=== PATIENT | male | born 1970 | race Caucasian/White ===

== ENCOUNTER → 2017-08-11 07:39 | Outpatient (CLI) | payer MEDICARE, SELFPAY ==
--- NOTE | 2017-08-11 07:41 | US_ITS ---
US abdomen limited: HISTORY: ITS.REASON: RUQ PAIN, NAUSEA ORDERING PHYSICIAN: Edelmira Marcelo PATIENT AGE: 47 years COMPARISON: None FINDINGS: PANCREAS: Pancreas is partially secured by overlying bowel gas. The body of the pancreas has an unremarkable appearance. LIVER: No focal liver lesions demonstrated. Homogeneous echogenicity. No intrahepatic biliary ductal dilatation evident RIGHT KIDNEY: Unremarkable. Normal size and echogenicity. No hydronephrosis GALLBLADDER: No gallstones, gallbladder wall thickening, pericholecystic fluid, or biliary dilatation. There is a small amount sludge within the gallbladder. Common bile duct is normal at 4 mm. IMPRESSION: 1. Small amount of sludge within the gallbladder. 2. Otherwise negative right upper quadrant ultrasound
== END ==
PROVIDERS: PCP Nurse Practitioner; Visit Provider Nurse Practitioner Family
DX: R10.11 Right upper quadrant pain (principal); R11.2 Nausea with vomiting, unspecified
CPT/HCPCS: 76705

== ENCOUNTER → 2017-08-18 09:54 | Outpatient (CLI) | payer MEDICARE, SELFPAY ==
--- NOTE | 2017-08-18 10:02 | NM_ITS ---
NM hepatobiliary wo pharm COMPARISON: Ultrasound gallbladder 08/11/2017 HISTORY: Right upper quadrant pain, sludge seen in gallbladder TECHNIQUE: 8.09 mCi of technetium 9M Choletec was injected. FINDINGS: The hepatic phase appears normal with homogeneous activity to the liver. There is activity in the common bile duct and proximal small bowel at 10 minutes. Later images show progressive washout of activity from liver with increasing activity in the proximal small bowel. Activity remains in the common bile duct and descending duodenum. Gallbladder activity is deftly seen on scans after one hour at which time a lateral view is obtained and then was followed by an AP 1 hour and 20 minute image. There is a small area of increased activity which appears be possibility junction of the cystic duct with the common bile duct but a normal appearing gallbladder is never visualized. CCK was not given. IMPRESSION: No definite gallbladder activity identified suggesting cystic duct obstruction
--- NOTE | 2017-08-18 10:57 | HMH.ITSHM ---
MUSCLE RELAXER STOMACH MED
== END ==
PROVIDERS: PCP Nurse Practitioner Family; Visit Provider Nurse Practitioner Family
DX: R10.11 Right upper quadrant pain (principal); K82.8 Other specified diseases of gallbladder
CPT/HCPCS: 78226; A9537; J2805

== ENCOUNTER → 2017-08-30 07:58 | Outpatient (CLI) | payer MEDICARE, SELFPAY ==
[2017-08-30 08:50] LABS: Basophils % 0.3 % (0.1-2.0); Eosinophils # 0.3 K/mm3 (0.0-0.4); Eosinophils % 3.9 % (0.1-12.0); Hematocrit 48.7 % (42.0-52.0); Hemoglobin 16.1 g/dL (14.1-18.0); Lymphocytes % 45.2 K/mm3 (10-50); Mean Corpuscular Hemoglobin 33.4 pg (27.0-31.2); Mean Corpuscular Volume 101.2 fl (80-94); Mean Platelet Volume 8.3 fl (7.4-10.4); Monocytes # 0.6 K/mm3 (0.1-1.0); Monocytes % 8.4 % (1.7-9.3); Neutrophils # 2.8 K/mm3 (1.8-7.8); Neutrophils % 42.2 % (37.0-80.0); Platelet Count 239 K/mm3 (142-424); Red Blood Count 4.82 M/mm3 (4.60-6.20); White Blood Count 6.6 K/mm3 (4.8-10.8)
[2017-08-30 11:34] LABS: Alanine Aminotransferase 128 U/L (12-78); Albumin Level 3.6 gm/dL (3.4-5.0); Albumin/Globulin Ratio 0.9 (1.1-1.8); Alkaline Phosphatase 85 U/L (46-116); Anion Gap 12.1 mEq/L (5-15); Aspartate Amino Transferase 79 U/L (15-37); Bilirubin,Total 0.4 mg/dL (0.2-1.0); Blood Urea Nitrogen 10 mg/dL (7-18); Carbon Dioxide 28 mmol/L (21.0-32.0); Chloride 106 mmol/L (98-107); Creatinine,Serum 0.83 mg/dL (0.70-1.30); Estimated Glomerular Filt Rate 100 ml/min (>60); GFR (African American) 121 ML/MIN (>60); Globulin 3.9 gm/dl (1.3-3.2); Glucose 90 mg/dL (74-106); Potassium 5.1 mmoL/L (3.5-5.1); Sodium 141 mmol/L (136-145); Total Protein,Serum 7.5 gm/dL (6.4-8.2)
== END ==
PROVIDERS: Visit Provider Surgery
DX: Z01.818 Encounter for other preprocedural examination (principal); K80.01 Calculus of gallbladder with acute cholecystitis with obstruction
CPT/HCPCS: 36415; 80053; 85025; 93005

== ENCOUNTER → 2018-10-09 13:01 | Outpatient (CLI) | payer MEDICARE, SELFPAY ==
[2018-10-09 13:05] LABS: Microscopic, Urine URINE MICROSCOPIC (MICROSCOPIC)
[2018-10-09 14:09] LABS: Appearance,Urine CLEAR (Clear); Bilirubin,Urine Negative (Negative); Blood, Urine Negative (Negative); Color,Urine YELLOW (Yellow); Glucose,Urine (UA) Negative (Negative); Ketones,Urine Negative (Negative); Leukocyte Esterase,Urine Negative (Negative); Nitrate,Urine Negative (Negative); Protein,Urine Negative (Negative); Specific Gravity, Urine <= 1.005 (1.005-1.030); Urobilinogen,Urine 0.2 EU/dl (0.2)
[2018-10-09 14:58] LABS: Basophils % 0.2 % (0.1-2.0); Eosinophils # 0.2 K/mm3 (0.0-0.4); Eosinophils % 3.4 % (0.1-12.0); Hematocrit 48.6 % (42.0-52.0); Hemoglobin 16.7 g/dL (14.1-18.0); Lymphocytes # 2.4 K/mm3 (0.7-4.5); Lymphocytes % 33.8 % (10-50); Mean Corpuscular HGB Conc 34.3 g/dL (31.8-35.4); Mean Corpuscular Hemoglobin 34.7 pg (27.0-31.2); Mean Corpuscular Volume 101.2 fl (80-94); Monocytes # 0.4 K/mm3 (0.1-1.0); Monocytes % 5.8 % (1.7-9.3); Neutrophils # 4.1 K/mm3 (1.8-7.8); Neutrophils % 56.9 % (37.0-80.0); Platelet Count 222 K/mm3 (142-424); Red Cell Distribution Width 13.2 % (11.5-17.5); White Blood Count 7.2 K/mm3 (4.8-10.8)
[2018-10-09 15:03] LABS: WBC,Urine Occasional #/hpf (0-3)
[2018-10-09 15:04] LABS: Bacteria,Urine Trace /lpf
[2018-10-09 15:07] LABS: Anion Gap 17.2 mEq/L (5-15); Blood Urea Nitrogen 10 mg/dL (7-18); Calcium 8.9 mg/dL (8.5-10.1); Carbon Dioxide 25 mmol/L (21.0-32.0); Chloride 102 mmol/L (98-107); Creatinine,Serum 0.94 mg/dL (0.70-1.30); Estimated Glomerular Filt Rate 86 ml/min (>60); GFR (African American) 105 ML/MIN (>60); Glucose 89 mg/dL (74-106); Potassium 4.2 mmoL/L (3.5-5.1); Sodium 140 mmol/L (136-145)
== END ==
PROVIDERS: Visit Provider Surgery
DX: K40.90 Unilateral inguinal hernia, without obstruction or gangrene, not specified as recurrent (principal); R10.9 Unspecified abdominal pain
CPT/HCPCS: 36415; 80048; 81001; 85025

== ENCOUNTER 2018-10-12 06:09 | Day surgery (SDC) | payer MEDICARE, SELFPAY ==
[2018-10-10 14:57] VITALS: BMI 34.4
[2018-10-12] VITALS (14 sets, daily range): BP systolic 142–161; BP diastolic 79–95; PULSE 62–81; RESP 12–18; TEMP 6.1–43; O2SAT 91–97
--- NOTE | 2018-10-12 07:00 | P.PN_ITS ---
[facility] Anesthesia Checklist - Structural Data Admitted From: Home Planned Operative Procedure/s: l inguinal hernia Consent for Planned Operative Procedure(s) Verified: Yes - Airway Assessment C-Spine Mobility Assessed: Yes TMJ Mobility Assessed: Yes Dentition: Good Dentition - Neurological Assessment Level of Consciousness: Awake, Alert, Appropriate - Anesthesia Plan Anesthesia Risk discussed: Yes Anesthesia Plan: Verified ASA Class: II Anesthesia Type: General [facility] History I have reviewed the patient's past medical history: Yes Medical History: Reports:: Gall Bladder Disease Denies:: Cancer, Diabetes Mellitus Type 1, Diabetes Mellitus Type 2, Internal Pacemaker, MRSA, Seizures *Have you ever received a pneumonia vaccine?: No *Have you received a flu vaccine this season?: No Other Medical History: Denies: Blood Transfusion Reaction Laterality Cases: Right: Arthroscopy Knee Other Surgeries: Yes: Cholecystectomy, Hernia Repair, Other. No: Pacemaker Amputation: No Fractures: Yes (ankles) - *Social History Educational Level: Completed High School Smoking Status: Never smoker Alcohol Intake: never Alcohol Intake Frequency:: holidays/special occasions only Substance Use Type: denies use *Occupational Status:: disabled Housing: house Household Members: family *Travel in the last 8 weeks: None - Psychiatric History Expresses thoughts of harming self/others: None Suicide Plan Description: No Plan Family Hx:: Cancer
--- NOTE | 2018-10-12 08:38 | HMH.OPNOTE ---
Date of procedure: 10/12/18 Pre-op Diagnosis:: Left inguinal hernia Post-op Diagnosis:: Same Procedure performed:: Open left inguinal hernia repair Surgeon:: Cristobal Yañez MD It Technical Support Specialist(s):: Manuela GASOLINE TESTER:: Edwin Box Anesthesia: GETA Estimated blood loss (mL): 15 Operative findings:: Complex left inguinal hernia with chronic inflammatory response around weakened floor and indirect defect Operative note:: After informed consent was obtained the patient was taken to the operating room and placed in the supine position. General anesthesia was induced and his abdomen/groin/scrotum were prepped and draped in a sterile fashion. After infiltration with local anesthetic an oblique incision was made along the left groin. The deep subcutaneous tissue was dissected with electrocautery through Luh's fascia to the level of the external aponeurosis. The external aponeurosis was sharply opened to the level of the external ring. The contents of the canal were carefully elevated. The patient had excess adiposity and dissection was very difficult. Severe chronic inflammatory changes with scarring in and around the entire canal contents noted. A weakened floor representing a direct deflect was noted. A complex indirect defect was also noted; however, the inflammatory response/chronic scarring made complete dissection very difficult. Cord lipomas were freed as the vas and vessels were protected. An extra-large PerFix plug was placed in the indirect defect and secured with interrupted Ethibond. The PerFix overlay mesh was then secured to the shelving edge inferiorly and fascial margin superiorly. No sign of injury or bleeding noted. The external aponeurosis was reapproximated with running Vicryl suture. Luh's fascia was closed in the same manner. Skin was then reapproximated with running 4-0 Monocryl in a subcuticular fashion. Dressings were applied and the patient was transferred to recovery in stable condition after extubation. Condition: stable Disposition: PACU Specimens:: None Complications:: No immediate
--- NOTE | 2018-10-12 08:45 | SUR.OPER ---
0847 rahman catheter removed
--- NOTE | 2018-10-12 08:51 | HMH.ANESI ---
[facility] Anesthesia Record Part I Intake, IV Amount: 1,900 Estimated blood loss (mL): 0 Urine output (mL): 250 Blood Pressure: 159/95 SaO2: 96 Pulse Rate: 81 Respiratory Rate: 12 Temperature: 98.1 F Patient is:: Awake, Stable Stable to PACU at:: 08:50
--- NOTE | 2018-10-12 08:52 | P.PN_ITS ---
[facility] Anesthesia Record Part II Discharge Time: 09:20 Destination: [facility] PACU nurse assessment reviewed?: Yes Patient Condition:: Good Anesthesia Complications:: None Swallowing reflex intact?: Yes Cyanosis?: No
--- NOTE | 2018-10-12 08:52 | HMH.ANESII ---
[facility] Anesthesia Record Part II Discharge Time: 09:20 Destination: [facility] PACU nurse assessment reviewed?: Yes Patient Condition:: Good Anesthesia Complications:: None Swallowing reflex intact?: Yes Cyanosis?: No
== END 2018-10-12 10:20 | disposition home or self-care (01) ==
LOC: OR 06:11
PROVIDERS: PCP Nurse Practitioner Family; Visit Provider Surgery
DX: K40.90 Unilateral inguinal hernia, without obstruction or gangrene, not specified as recurrent (principal)
CPT/HCPCS: 49505; 96374; J2405

== ENCOUNTER → 2019-09-04 07:03 | Outpatient (CLI) | payer MEDICARE, SELFPAY ==
--- NOTE | 2019-09-04 07:08 | XR_ITS ---
PROCEDURE: XR CERVICAL SPINE 5V CLINICAL INDICATION: CERVICALGIA Neck pain radiating down right arm with tingling on right COMPARISON: No exams were available for comparison FINDINGS: There is degenerative disc disease at C5-C6 with endplate osteophytes. There is mild facet and uncovertebral hypertrophy with mild foraminal narrowing on the right at C3-C4 C4-C5 C5-C6 and C6-C7 and narrowing on the left at C3-C4 and C5-C6. No cervical ribs. No destructive process. IMPRESSION: Cervical spondylosis with degenerative disc disease and foraminal narrowing from uncovertebral hypertrophy Dictated by: Declan Sandoval MD 09/04/2019 07:51 Electronically signed by Declan Sandoval MD in [place] 09/04/2019 07:51
== END ==
PROVIDERS: PCP Nurse Practitioner Family; Visit Provider Nurse Practitioner Family
DX: M54.2 Cervicalgia (principal)
CPT/HCPCS: 72050

== ENCOUNTER → 2019-09-10 12:46 | Outpatient (CLI) | payer MEDICARE, SELFPAY ==
--- NOTE | 2019-09-10 12:51 | MR_ITS ---
PROCEDURE: MR CERVICAL SPINE WO CON CLINICAL INDICATION: CERVICAL SPONDYLOSIS Neck pain, bilateral arm pain numbness and tingling, severe right arm pain COMPARISON: XR CERVICAL SPINE 5V from 09/04/2019 TECHNIQUE: Standard multiplanar multiecho sequences are performed without contrast. 3-D MIP and myelographic images are also rendered and reviewed FINDINGS: There is straightening of the cervical lordosis. Craniocervical junction has an unremarkable appearance. C2-C3: Unremarkable. C3-C4: Minimal left foraminal narrowing from facet and uncovertebral hypertrophy. C4-C5: Unremarkable. C5-C6: There is degenerative disc disease with a broad-based left paracentral for 2 ending disc-disc osteophyte complex. This is causing impingement and flattening upon the anterior left aspect of the cervical cord with canal measuring 10 mm at this level. There is bilateral foraminal narrowing and moderate left lateral recess narrowing. C6-C7: Degenerative disc disease with a broad-based right paracentral and foraminal disc osteophyte complex causing flattening upon the anterior and right lateral aspect of the cord with severe right lateral recess narrowing and bilateral foraminal narrowing. C7-T1: Unremarkable IMPRESSION: 1. Straightening of cervical lordosis with level multilevel cervical spondylosis. Please see above for detailed description at each 2. C5-C6: There is degenerative disc disease with a broad-based left paracentral for 2 ending disc-disc osteophyte complex. This is causing impingement and flattening upon the anterior left aspect of the cervical cord with canal measuring 10 mm at this level. There is bilateral foraminal narrowing and moderate left lateral recess narrowing. 3. C6-C7: Degenerative disc disease with a broad-based right paracentral and foraminal disc osteophyte complex causing flattening upon the anterior and right lateral aspect of the cord with severe right lateral recess narrowing and bilateral foraminal narrowing. Dictated by: Declan Sandoval MD 09/10/2019 15:07 Electronically signed by Declan Sandoval MD in [place] 09/10/2019 15:07
== END ==
PROVIDERS: PCP Nurse Practitioner Family; Visit Provider Nurse Practitioner Family
DX: M47.22 Other spondylosis with radiculopathy, cervical region (principal)
CPT/HCPCS: 72141; 76376

== ENCOUNTER 2019-09-10 14:23 | Emergency (ER) | payer MEDICARE, SELFPAY ==
[2019-09-10 14:25] VITALS: BP 212/109; PULSE 98; RESP 20; TEMP 36.6; O2SAT 97; BMI 35.2
--- NOTE | 2019-09-10 16:06 | HMH.EDGENADL ---
ED Disposition Clinical Impression: Cervicalgia of hgxyigsa-[id number]-[id number] region Disposition: Home, Self-Care Condition on Discharge: Good Instructions: DI for Chronic Pain -- Adult, DI for Acute Pain -- Adult Prescriptions: Tizanidine HCl [Zanaflex 4mg tablet] 4 mg PO TID 12 Days #45 tab Transmission Status: Pending to [facility] Referrals: Edelmira Marcelo APRN [Primary Care Provider] - - Critical Care Critical Care Time: No Attestation: On 09/10/19, the high probability of a clinically significant, sudden or life threatening deterioration of the following system(s) required my full and direct attention, intervention and personal management. The time I documented below is in addition to time spent performing reported procedures but includes the following listed in this critical care notation. Medical Decision Making - Medical Records Medical records reviewed: Yes: I reviewed the patient's medical records. - Julio César Inquiry Pt receiving controlled substance: No Vital Signs: 09/10/19 14:25 Temperature 97.8 F Temperature Source Oral Pulse Rate [Radial] 98 H Respiratory Rate 20 Blood Pressure [Right Arm] 212/109 H Blood Pressure Mean [Right Arm] 143 Blood Pressure Source [Right Arm] Automatic Cuff Blood Pressure Position [Right Arm] Sitting 02 Sat by Pulse Oximetry 97 Oxygen Delivery Method Room Air - Lab Data Lab results reviewed: Yes: I reviewed the patient's lab results. Orders (Tests/Meds): ED MEDICATIONS Discontinued Medications Generic Name Dose Route Start Last Admin Trade Name Kvngq PRN Reason Stop Dose Admin Hydromorphone HCl 1 mg 09/10/19 15:05 09/10/19 15:06 Dilaudid 2mg/Ml Syringe IM 09/10/19 15:06 1 mg ONCE ONE Administration Ketorolac Tromethamine 60 mg 09/10/19 15:05 09/10/19 15:06 Toradol 60mg/2ml Vial IM 09/10/19 15:06 60 mg ONCE ONE Administration Triamcinolone Acetonide 80 mg 09/10/19 15:05 09/10/19 15:06 Kenalog 40mg/Ml Vial IM 09/10/19 15:06 80 mg ONCE ONE Administration General Adult HPI - General Chief complaint: PAIN Stated complaint: neck pain Time Seen by Provider: 09/10/19 16:06 Mode of Arrival: Ambulatory Limitations: No Limitations Description of Symptoms (Recalled from ER Triage Doc. by RN): Complaint of neck and back pain x 3 months. MRI this morning - History of Present Illness HPI narrative: 49-year-old male presents the ED with severe neck pain. Apparently he was get an MRI done of his cervical spine and after the MRI he was just in a lot of pain and presented here to the ED. Patient has had chronic neck pain for quite some time is presently being managed by his primary care provider. He states that the pain is a very sharp sensation going down both arms describes the pain as tearing at times. He rates his pain currently at 9 out of 10. He says there are no alleviating factors exacerbating factors include movement. Patient has good muscle strength in his upper extremities does not complain of any weakness. Patient also denies any recent fever shakes or chills nausea vomiting diarrhea and cough or shortness of breath. - Related Data Home Medications Medication Instructions Recorded Confirmed ibuprofen 200 mg capsule 200 mg PO Q6H 09/04/18 10/31/18 Tizanidine HCl [Zanaflex] 4 mg PO DAILY 10/10/18 10/31/18 Previous Rx's Medication Instructions Recorded Tizanidine HCl [Zanaflex 4mg 4 mg PO TID 12 Days #45 tab 09/10/19 tablet] Allergies Allergy/AdvReac Type Severity Reaction Status Date / Time No Known Allergies Allergy Verified 10/31/18 13:31 [facility] History - Hepatitis A Screen Drug use history?: No High risk sexual behaviors?: No History of sexually transmitted infection?: No Currently employed?: No Childcare worker?: No Do you have indoor plumbing?: Yes Do you have electricity?: Yes Attestation statement:: This patient has been screened for Hepatitis A ri
[2019-09-10 16:47] VITALS: BP 122/85; PULSE 85; RESP 20; TEMP 36.8; O2SAT 98
== END 2019-09-10 16:48 | disposition home or self-care (01) ==
PROVIDERS: Emergency Provider Family Medicine; PCP Nurse Practitioner Family
DX: M54.2 Cervicalgia (principal)
CPT/HCPCS: 20552; 72141; 76376; 96372; 99281; 99282

== ENCOUNTER → 2019-10-01 09:33 | Outpatient (POV) | payer MEDICARE, SELFPAY ==
[2019-10-01 09:58] VITALS: BP 170/78; PULSE 100; RESP 18; TEMP 36.8; O2SAT 98; BMI 29.8
--- NOTE | 2019-10-01 15:30 | HMH.PMCON ---
Assessment and Plan (1) Degenerative disc disease, lumbar Current visit: Yes Status: Chronic Category: Medical Code(s): M51.36 - Other intervertebral disc degeneration, lumbar region (2) Degenerative disc disease, cervical Current visit: Yes Status: Chronic Category: Medical Code(s): M50.30 - Other cervical disc degeneration, unspecified cervical region - Assessment and plan all Dx Assessment and Plan for all problems:: We will set up the patient for C5-C6 cervical epidural steroid injection. We will also start him on Lyrica 75 mg 1 p.o. twice daily and tramadol 50 mg 1 p.o. 3 times daily. I will follow-up with him after his injection reassess his symptoms at that time. He has been instructed to call the office if he has any issues prior to his next appointment. Dr. Urias has reviewed this note and agrees with this plan of care. This note was dictated using voice recognition software and may contain errors or omissions HPI - Data of Consult Consult date: 10/01/19 Requesting Physician: Edith Feliciano APRN Primary Care Provider: Edelmira Marcelo APRN - Consult Narrative Reason for consult: Back pain, leg pain neck pain History of present illness: Mr. Kendrick is a 49 year old male who presents today for consultation in regards to his neck pain and back pain. 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 He used to go to see Dr. ramires where he received epidural injections with quite some benefit. Patient stated that he has been on Lyrica in the past with good relief. Patient has also been on low-dose narcotics with good relief he rates his pain a 7 out of 10. He is tried and failed physical therapy. Most of his pain is in his neck some neck and bilateral arms. He has an appointment with the surgeon. All activity increases his pain will heat ice physical therapy and pain cream decreases pain. He gets moderate relief with injections. He gets significant relief with physical therapy. Patient does have significant pathology in his cervical MRI. CC: Edith Feliciano APRN [facility] History I have reviewed the patient's past medical history: Yes Medical History: Reports:: Gall Bladder Disease Denies:: Cancer, Diabetes Mellitus Type 1, Diabetes Mellitus Type 2, Internal Pacemaker, MRSA, Seizures *Have you ever received a pneumonia vaccine?: Yes *Have you received a flu vaccine this season?: Yes Other Medical History: Reports: Arthritis. Denies: Blood Transfusion Reaction Laterality Cases: Right: Arthroscopy Knee Other Surgeries: Yes: Cholecystectomy, Hernia Repair, Other. No: Pacemaker Amputation: No Fractures: Yes (ankles) - *Social History Smoking Status: Never smoker Alcohol Intake: never Alcohol Intake Frequency:: holidays/special occasions only Substance Use Type: denies use *Occupational Status:: other Housing: house Household Members: other *Travel in the last 8 weeks: None Family Hx:: Unable to obtain Review of Systems - Review of Systems ROS General: no recent weight change, no fever, no sleep disturbances Respiratory: no cough, no shortness of air, no recurring pulmonary infections Cardiovascular/Peripheral Vascular: No chest pain, No palpitations, no edema, no shortness of breath. Gastrointestinal: no new onset incontinence, normal bowel movements reported Genitourinary: no new onset incontinence Musculoskeletal: Neck pain, leg pain, back pain Psychiatric: normal mood/ affect Neurological: [denies new onset weakness in extremities], [denies new onset balance issues] Meds Home Medications Medication Instructions Recorded Confirmed Type ibuprofen 200 mg capsule 200 mg PO Q6H 09/04/18 10/31/18 History Tizanidine HCl [Zanaflex] 4 mg PO DAILY 10/10/18 10/31/18 History Tizanidine HCl [Zanaflex 4mg 4 mg PO TID 12 Days #45 tab 09/10/19 Rx tablet] Allergies Allergy/AdvReac Type Severity Reaction Status Date / Time No Known Allergies Allergy
== END ==
PROVIDERS: PCP Nurse Practitioner Family; Visit Provider Clinical Nurse Specialist Family Health
DX: M51.36 Other intervertebral disc degeneration, lumbar region (principal); M50.30 Other cervical disc degeneration, unspecified cervical region
CPT/HCPCS: 99202

== ENCOUNTER 2019-10-04 14:46 | Day surgery (SDC) | payer MEDICARE, SELFPAY ==
[2019-10-04 14:53] VITALS: BP 149/93; PULSE 95; RESP 18; TEMP 36.9; O2SAT 98; BMI 35.9
--- NOTE | 2019-10-04 15:22 | HMH.PMPROC ---
- Procedure Date: 10/04/19 Time: 15:22 Anesthesiologist:: Jose Elias Urias MD Complications:: None Pre-procedure Diagnosis:: Degenerative disc disease of the cervical spine with cervical radiculopathy symptoms Post-procedure Diagnosis:: Same Indications for Procedure:: This patient is a pleasant 49-year-old white male who we are treating for neck pain with cervical radiculopathy symptoms. He has previously had injections by Dr. Pickett which is helped tremendously. Most of his pain is in the neck rating down to his shoulders and arms. We will do a cervical epidural steroid injection today to see if this will help. Procedure Details:: Cervical epidural steroid injection under fluoroscopy Informed consent was obtained and the risks and benefits of the procedure was explained to the patient. The patient was taken to the procedure room placed prone on the procedure table. The neck was prepped using ChloraPrep. The skin and subcutaneous tissues were anesthetized using lidocaine. I placed a 18-gauge epidural needle into the C5-C6 interspace and advanced using [id number] to air and fluoroscopic guidance. After confirmation of needle placement in the epidural space with dye, I injected 3 mL's lidocaine 1.5% and Depo-Medrol 80 mg. The patient tolerated the procedure well with no complications. Plan and Disposition:: We will follow-up with him in 2 weeks. Will reevaluate symptoms at that time.
[2019-10-04 15:25] VITALS: BP 155/88; BP 159/85; PULSE 85; RESP 18; O2SAT 98; O2SAT 99
[2019-10-04 15:36] VITALS: BP 165/99; PULSE 89; RESP 18; O2SAT 98
== END 2019-10-04 15:37 | disposition home or self-care (01) ==
LOC: SC.PAINP 14:48
PROVIDERS: PCP Nurse Practitioner Family; Visit Provider Anesthesiology
DX: M50.10 Cervical disc disorder with radiculopathy, unspecified cervical region (principal); I10 Essential (primary) hypertension; Z87.39 Personal history of other diseases of the musculoskeletal system and connective tissue; Z87.19 Personal history of other diseases of the digestive system
CPT/HCPCS: 62321; J1040; Q9966

== ENCOUNTER → 2019-10-21 14:49 | Outpatient (POV) | payer MEDICARE, SELFPAY ==
[2019-10-21 15:20] VITALS: BP 160/95; PULSE 72; RESP 18; TEMP 36.8; O2SAT 98; BMI 35.9
--- NOTE | 2019-10-21 15:20 | HMH.PAINSOAP ---
[facility] Pain Management SOAP Note Subjective:: Patient is a pleasant 49-year-old white male who presents today for follow-up after cervical epidural steroid injection. He states it helped significantly and decrease his symptomology by 80%. Patient states he had a [address] last night from [facility] he found that he had muscle spasms and trigger points pop up in his cervical paraspinous and trapezius muscles. He asked for some trigger point injections. I do believe that would benefit him. He states the Lyrica 75 mg 1 p.o. twice daily and tramadol 50 mg 3 times daily is beneficial. [facility] #[id number] reviewed and appropriate. ROS General: no recent weight change, no fever, no sleep disturbances Respiratory: no cough, no shortness of air, no recurring pulmonary infections Cardiovascular/Peripheral Vascular: No chest pain, No palpitations, no edema, no shortness of breath. Gastrointestinal: no new onset incontinence, normal bowel movements reported Genitourinary: no new onset incontinence Musculoskeletal: Neck pain, myofascial pain Psychiatric: normal mood/ affect Neurological: [denies new onset weakness in extremities], [denies new onset balance issues] Objective:: Physical Exam General: Alert and oriented x3, no acute distress, pleasant and cooperative, [on room air] Lungs: Resps E/U, Symmetrical chest expansion, Eyes: PERRL Musculoskeletal: Flexion and extension of cervical spine somewhat guarded secondary to pain, deep tendon reflexes normal, strength in upper and lower extremities [5/5], normal gait noted Neurological: speech clear, obstetrician/gynecologist equal, no gross sensory deficits Assessment:: Degenerative disc disease cervical spine with cervical radiculopathy and myofascial pain syndrome Plan:: We will set the patient up for trigger point injections of the cervical paraspinous and bilateral trapezius muscles. We will continue his Lyrica 75 mg 1 p.o. twice daily and tramadol 50 mg 1 p.o. 3 times daily. I will follow-up with him after his injections reassess his symptoms at that time he has been instructed to call the office if he has any issues prior to his next appointment. Dr. Urias has reviewed this note and agrees with this plan of care. This note was dictated using voice recognition software and may contain errors or omissions [facility] History I have reviewed the patient's past medical history: Yes Medical History: Reports:: Gall Bladder Disease Denies:: Cancer, Diabetes Mellitus Type 1, Diabetes Mellitus Type 2, Internal Pacemaker, MRSA, Seizures *Have you ever received a pneumonia vaccine?: No *Have you received a flu vaccine this season?: No Other Medical History: Reports: Arthritis. Denies: Blood Transfusion Reaction Laterality Cases: Right: Arthroscopy Knee Other Surgeries: Yes: Cholecystectomy, Hernia Repair, Other. No: Pacemaker Amputation: No Fractures: Yes (ankles) - *Social History Smoking Status: Never smoker Alcohol Intake: never Alcohol Intake Frequency:: holidays/special occasions only Substance Use Type: denies use *Occupational Status:: employed Housing: house Household Members: other *Travel in the last 8 weeks: None Family Hx:: Unable to obtain
== END ==
PROVIDERS: PCP Nurse Practitioner Family; Visit Provider Clinical Nurse Specialist Family Health
DX: M50.10 Cervical disc disorder with radiculopathy, unspecified cervical region (principal); M79.18 Myalgia, other site
CPT/HCPCS: 99212

== ENCOUNTER 2019-11-05 13:14 | Day surgery (SDC) | payer MEDICARE, SELFPAY ==
[2019-11-05 13:35] VITALS: BP 176/103; PULSE 78; RESP 18; TEMP 36.5; O2SAT 97; BMI 35.9
[2019-11-05 13:53] VITALS: BP 132/85; PULSE 85
[2019-11-05 13:54] VITALS: BP 140/78; PULSE 82; RESP 18; O2SAT 98
--- NOTE | 2019-11-05 13:56 | P.PCN_ITS ---
- Procedure Date: 11/05/19 Time: 13:56 Anesthesiologist:: Edith Feliciano APRN Complications:: None Pre-procedure Diagnosis:: Myofascial pain syndrome Post-procedure Diagnosis:: Same Indications for Procedure:: Patient is a pleasant 49-year-old white male who presents today for trigger point injections of the cervical paraspinous muscles. He has had a cervical epidural which significantly helped his symptomology now his main complaint is myofascial pain symptoms. He is currently on Lyrica and tramadol 50 mg 1 p.o. 3 times daily. He is doing well with this. We will move forward with his trigger point injections. Physical Exam General: Alert and oriented x3, no acute distress, pleasant and cooperative, [on room air] Lungs: Resps E/U, Symmetrical chest expansion, Eyes: PERRL Musculoskeletal: Flexion and extension of cervical spine somewhat guarded secondary to pain, deep tendon reflexes normal, strength in upper and lower extremities [5/5],, palpable trigger points bilateral cervical paraspinous area Neurological: speech clear, asphalt blender equal, no gross sensory deficits Procedure Details:: Procedure: Informed consent was obtained and the risk and benefits of the procedure were explained to the patient. Patient was taken to the procedure room. Bilateral cervical paraspinous muscles was prepped using ChloraPrep as a cleansing solution. Trigger points were palpated and marked. Each of these trigger points were injected with 3 mL's of bupivacaine 0.25 and Depo-Medrol 10 mg. A total of 80 milligrams of Depo-Medrol was used for 8. Bandages were placed over the injection sites. Patient tolerated the procedure well with no complications. Plan and Disposition:: Follow-up with the patient in 2 to 3 weeks reassess his symptoms at that time he has been instructed to call the office if he has any issues prior to his next appointment. Dr. Urias has reviewed this note and agrees with this plan of care. This note was dictated using voice recognition software and may contain errors or omissions
[2019-11-05 14:05] VITALS: BP 168/105; PULSE 76; RESP 18; O2SAT 98
== END 2019-11-05 14:07 | disposition home or self-care (01) ==
LOC: SC.PAINP 13:15
PROVIDERS: PCP Nurse Practitioner Family; Visit Provider Clinical Nurse Specialist Family Health
DX: M79.18 Myalgia, other site (principal); I10 Essential (primary) hypertension; M50.30 Other cervical disc degeneration, unspecified cervical region; M51.36 Other intervertebral disc degeneration, lumbar region; Z87.39 Personal history of other diseases of the musculoskeletal system and connective tissue; Z79.82 Long term (current) use of aspirin; Z79.899 Other long term (current) drug therapy
CPT/HCPCS: 20552; J1030

== ENCOUNTER → 2019-11-28 09:31 | Outpatient (POV) | payer MEDICARE, SELFPAY ==
[2019-11-28 10:01] VITALS: BP 174/98; PULSE 74; RESP 18; O2SAT 98; BMI 32.3
--- NOTE | 2019-11-28 12:45 | HMH.PAINSOAP ---
[facility] Pain Management SOAP Note Subjective:: Patient is a 49-year-old white male who presents today for follow-up. He has been treated for neck pain as well as cervical radiculopathy symptoms myofascial pain. Patient has undergone cervical epidural steroid injection which has given him relief, however, he continued to have some myofascial pain. He did undergo trigger point injections. Patient says he feels as though he got more relief with the trigger point injections than he did with the epidural. He is currently on Lyrica and tramadol. Patient says that he wants to change his medication to [place]. He says he was on those in the past and he thinks this would give him more relief. We did have a conversation that we would not be changing his medications, however, patient says that he is not interested in further injective therapy. He also says he is not interested in any type of implanted devices. He says that he does have an appointment scheduled with neurosurgery department to discuss possible options. He also says that he is going to discuss possible oral medication management with his primary care provider or possible clinics in [place]. He says he did see Dr Patino for medication management in the past. Patient says he is considering returning there. He rates his pain a 6 out of 10. Review of Systems General: No recent weight changes, no fever, no sleep disturbances Respiratory: No cough, no shortness of air, no recurring pulmonary infections Cardiovascular/peripheral vascular: No chest pain, no palpitations, no edema, no shortness of breath Gastrointestinal: No new onset incontinence, normal bowel movements reported Genitourinary: No new onset incontinence Musculoskeletal: Neck pain, right arm pain with numbness and tingling Psychiatric: Normal mood/affect Neurological: [Denies weakness in extremities], [denies balance issues] Objective:: Physical exam General: Alert and oriented x3, no acute distress, pleasant and cooperative, [on room air] Lungs: Respirations even and unlabored, symmetrical chest expansion Eyes: PERRL Musculoskeletal: Flexion and extension of cervical spine somewhat guarded secondary to pain, deep tendon reflexes normal, strength in upper and lower extremities [5/5], normal gait noted Neurological: 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 He understands we will not be changing his medication given. He is not interested in any type of interventional therapies. He does plan to see [facility] neurosurgery and has discussed possible clinics to offer oral medications. Patient would like to follow-up with us as needed. He understands if he does transfer to a different clinic that we will not be able to provide him with his current medications. He is currently being prescribed Lyrica 75 mg p.o. twice daily and tramadol 50 mg 1 tablet p.o. 3 times daily. He understands he will need to get these medications at a different clinic. Otherwise, we will follow-up with him as needed. The patient and I specifically discussed risk factors for COVID19. These risks include, but are not limited to age greater than 60, heart or lung disease, diabetes, immunosuppression, and travel. We also discussed NSAIDs may worsen COVID19 infection or symptoms. Patient should not use NSAIDs to treat COVID19 signs or symptoms. Patient was also informed that any type of corticosteroid of any form (oral or injection) will decrease the patient's immune system response and may increase the likelihood of COVID19 infection and symptoms. Dr. Urias has reviewed this note and agrees with this plan of care. This note was dictated using voice recognition software and make contain errors or omissio
== END ==
PROVIDERS: PCP Nurse Practitioner Family; Visit Provider Clinical Nurse Specialist Family Health
DX: M50.10 Cervical disc disorder with radiculopathy, unspecified cervical region (principal); M79.18 Myalgia, other site
CPT/HCPCS: 99212

== ENCOUNTER 2020-09-16 11:32 | Emergency (ER) | payer MEDICARE, SELFPAY ==
[2020-09-16 11:40] VITALS: BP 140/89; PULSE 64; RESP 17; TEMP 36.7; O2SAT 98; BMI 34.8
[2020-09-16 11:46] VITALS: BP 140/89; PULSE 64; RESP 17; TEMP 36.7
--- NOTE | 2020-09-16 11:46 | HMH.EDUTC ---
[facility] [place] Disposition Clinical Impression: Encounter for laboratory testing for COVID-19 virus Disposition: Home, Self-Care Condition on Discharge: Good Instructions: DI for COVID-19 (Suspected or Confirmed ), COVID-19: Testing and Tracing, Preventing the Spread of Coronavirus Discharge Instructions Additional Instructions: *Monitor Temp, Over the counter Motrin or Tylenol as directed/as needed Tylenol every 4 hours and Motrin every 6 hours (as long as your family doctor has told you that you can take it) for fever or pain. and straight to ER if unable to lower temp less than 101.0 after medication given Follow up IMMEDIATELY for new or worsening symptoms or no Noticeable improvement over the next 48-72 hours. 911 for difficulty breathing or swallowing You were tested for today for COVID19 your test result should be back in the next 24-48 hours, you may call to the [facility] to see if your test results are back in the next 48 hours [phone] [facility] hours are 9am-9pm You was given a handout with instructions for Self Quarantine and Self isolation for while you wait on test results and what to do if they are positive If you are positive the Health Dept will be contacting you also Referrals: Edelmira Marcelo APRN [Primary Care Provider] - As needed Time of Disposition: 11:47 Medical Decision Making - Julio César Inquiry Pt receiving controlled substance: No Julio César was queried for this patient: No Vital Signs: 09/16/20 11:40 Temperature 98.1 F Temperature Source Oral Pulse Rate [Left] 64 Respiratory Rate 17 Blood Pressure [Right Arm] 140/89 Blood Pressure Mean [Right Arm] 106 Blood Pressure Source [Right Arm] Automatic Cuff Blood Pressure Position [Right Arm] Sitting 02 Sat by Pulse Oximetry 98 Orders (Tests/Meds): ORDERS Category Date Time Status Covid-19 Nasal PCR ([facility]) Routine Lab 09/16/20 11:37 Ordered [facility] [place] [facility] HPI - General Stated complaint: covid test Time Seen by Provider: 09/16/20 11:46 Mode of Arrival: Ambulatory Source of Information: Patient Limitations: No Limitations Description of Symptoms (Recalled from Triage Doc. by RN): pt needs a coivd test to enter a facility on Monday. pt is asymptomatic. no exposure HEENT Symptoms (Recalled from RN notes): No Resp Symptoms (Recalled from RN notes): No Skin Symptoms (Recalled from RN notes): No MS Symptoms (Recalled from RN notes): No Functional Status (Recalled from RN notes): na - History of Present Illness Provider Complaint: Patient states that he had to get COVID test done before he can go into a facility on Monday State that they wanted him to get tested before he could go in Denies known exposure and denies symptoms - Related Data Home Medications Medication Instructions Recorded Confirmed Aspirin [Aspirin 81mg EC Tab] 81 mg PO DAILY 10/04/19 11/05/19 Mv-Mn/Folic Acid/Lutein/Bbw372 1 each PO DAILY 10/04/19 11/05/19 [Mens Multivit High Potency Tab] Allergies Allergy/AdvReac Type Severity Reaction Status Date / Time No Known Allergies Allergy Verified 09/16/20 11:39 - Worker's Comp Is this a Worker's Comp case?: No [facility] History - Hepatitis A Screen Drug use history?: No High risk sexual behaviors?: No History of sexually transmitted infection?: No Currently employed?: No Childcare worker?: No Do you have indoor plumbing?: Yes Do you have electricity?: Yes Attestation statement:: This patient has been screened for Hepatitis A risk factors. I have reviewed the patient's past medical history: Yes Medical History: Reports:: Gall Bladder Disease Denies:: Cancer, Diabetes Mellitus Type 1, Diabetes Mellitus Type 2, Internal Pacemaker, MRSA, Seizures Other Medical History: Reports: Arthritis. Denies: Blood Transfusion Reaction Laterality Cases: Right: Arthroscopy Knee Other Surgeries: Yes: Cholecystectomy, Hernia Repair, Other. No: Pacemaker Amputation: No Fractures: Yes (ankles) - Social History Smoking Status: Nev
== END 2020-09-16 11:48 | disposition home or self-care (01) ==
PROVIDERS: Emergency Provider Nurse Practitioner; PCP Nurse Practitioner Family
DX: Z20.822 Contact with and (suspected) exposure to COVID-19 (principal)
CPT/HCPCS: G0463; 99202; U0003

== ENCOUNTER 2020-09-24 12:24 | Emergency (ER) | payer MEDICARE, SELFPAY ==
[2020-09-24 12:27] VITALS: BP 138/81; PULSE 74; RESP 19; TEMP 36.9; O2SAT 98; BMI 34.2
[2020-09-24 12:42] VITALS: BP 138/81; PULSE 74; RESP 19; TEMP 36.9; O2SAT 98
--- NOTE | 2020-09-24 12:59 | HMH.EDUTC ---
[facility] [place] Clinical Impression: Exposure to COVID-19 virus Disposition: Home, Self-Care Condition on Discharge: Good Instructions: Preventing the Spread of Coronavirus Discharge Instructions Additional Instructions: Drink plenty of fluids. Take tylenol for pain or fever. Return if you begin to have difficulty breathing. Follow up with your regular doctor. GO TO THE ER FOR ANY WORSENING SYMPTOMS Referrals: Edelmira Marcelo APRN [Primary Care Provider] - Time of Disposition: 13:03 Medical Decision Making - Medical Records Medical records reviewed: No: I reviewed the patient's medical records. - Julio César Inquiry Pt receiving controlled substance: No Vital Signs: 09/24/20 12:27 09/24/20 12:42 Temperature 98.5 F 98.5 F Temperature Source Oral Oral Pulse Rate 74 Pulse Rate [Left] 74 Respiratory Rate 19 19 Blood Pressure 138/81 Blood Pressure [Right Arm] 138/81 Blood Pressure Mean [Right Arm] 100 02 Sat by Pulse Oximetry 98 [facility] [place] - General Stated complaint: covid test Time Seen by Provider: 09/24/20 13:00 Mode of Arrival: Ambulatory Source of Information: Patient Limitations: No Limitations Description of Symptoms (Recalled from Triage Doc. by RN): Covid test HEENT Symptoms (Recalled from RN notes): No Resp Symptoms (Recalled from RN notes): No Skin Symptoms (Recalled from RN notes): No MS Symptoms (Recalled from RN notes): No Functional Status (Recalled from RN notes): wnl - History of Present Illness Provider Complaint: He has to travel for his job this weekend and he needs a covid-19 test before he can do this. He denies any symptoms. - Related Data Home Medications Medication Instructions Recorded Confirmed Aspirin [Aspirin 81mg EC Tab] 81 mg PO DAILY 10/04/19 11/05/19 Mv-Mn/Folic Acid/Lutein/Cdz861 1 each PO DAILY 10/04/19 11/05/19 [Mens Multivit High Potency Tab] Allergies Allergy/AdvReac Type Severity Reaction Status Date / Time No Known Allergies Allergy Verified 09/24/20 12:42 - Worker's Comp Is this a Worker's Comp case?: No [facility] History - Hepatitis A Screen Drug use history?: No High risk sexual behaviors?: No History of sexually transmitted infection?: No Currently employed?: No Childcare worker?: No Do you have indoor plumbing?: No Do you have electricity?: No Attestation statement:: This patient has been screened for Hepatitis A risk factors. I have reviewed the patient's past medical history: Yes Medical History: Reports:: Gall Bladder Disease Denies:: Cancer, Diabetes Mellitus Type 1, Diabetes Mellitus Type 2, Internal Pacemaker, MRSA, Seizures Other Medical History: Reports: Arthritis. Denies: Blood Transfusion Reaction Laterality Cases: Right: Arthroscopy Knee Other Surgeries: Yes: Cholecystectomy, Hernia Repair, Other. No: Pacemaker Amputation: No Fractures: Yes (ankles) - Social History Smoking Status: Never smoker Alcohol Intake: never Alcohol Intake Frequency:: holidays/special occasions only Substance Use Type: denies use Occupational Status: retired Housing: house Household Members: other Family Hx:: Unable to obtain ROS Obtained: Yes All systems reviewed & no additional complaints - Constitutional Constitutional: Reports system reviewed and no additional complaints, except as docu - Eyes Eyes: Reports system reviewed and no additional complaints, except as docu - ENT Ears, Nose, Mouth, and Throat: Reports system reviewed and no additional complaints, except as docu - Cardiovascular Cardiovascular: Reports system reviewed and no additional complaints, except as docu - Respiratory Respiratory: Reports system reviewed and no additional complaints, except as docu - Gastrointestinal Gastrointestingal: Reports: system reviewed and no additional complaints, except as docu Physical Exam - General General appearance: alert, in no apparent distress - Head Head exam: atraumatic, normocephal
== END 2020-09-24 13:05 | disposition home or self-care (01) ==
PROVIDERS: Emergency Provider Nurse Practitioner Family; PCP Nurse Practitioner Family
DX: Z11.52 Encounter for screening for COVID-19 (principal)
CPT/HCPCS: G0463; 99202; U0003

== ENCOUNTER → 2020-12-28 13:51 | Outpatient (CLI) | payer MEDICARE, SELFPAY ==
[2020-12-28 14:32] LABS: Hemoglobin A1C 5.6 % (4.0-6.0)
[2020-12-28 14:45] LABS: Erythrocyte Sedimentation Rate 18 mm/hr (0-15)
[2020-12-28 17:00] LABS: Cholesterol 223 mg/dl (140-200); HDL Cholesterol 28 mg/dl (40-60); Triglycerides 179 mg/dl (30-150); Uric Acid 6.7 mg/dl (3.5-8.5); VLDL Cholesterol 36 mg/dL (0-40)
[2020-12-28 17:11] LABS: C-Reactive Protein 2.8 mg/L (0-4); Direct LDL Cholesterol 151.35 mg/dL (100-129)
[2020-12-30 08:21] LABS: RA Latex Turbid. <10.0 IU/mL (0.0-13.9)
[2020-12-31 10:27] LABS: Antinuclear Antibodies, IFA Positive (.)
== END ==
PROVIDERS: Visit Provider Nurse Practitioner Family
DX: M79.89 Other specified soft tissue disorders (principal); Z13.1 Encounter for screening for diabetes mellitus; Z13.220 Encounter for screening for lipoid disorders; R79.89 Other specified abnormal findings of blood chemistry
CPT/HCPCS: 36415; 80061; 83036; 84550; 85651; 86038; 86140; 86431

== ENCOUNTER → 2021-03-15 10:11 | Outpatient (CLI) | payer MEDICARE, SELFPAY ==
[2021-03-23 00:07] LABS: QuantiFERON-TB Gold Plus Negative (Negative)
== END ==
PROVIDERS: Visit Provider Nurse Practitioner Family
DX: M25.641 Stiffness of right hand, not elsewhere classified (principal); R20.2 Paresthesia of skin; R76.8 Other specified abnormal immunological findings in serum
CPT/HCPCS: 36415; 86480

== ENCOUNTER → 2021-03-26 13:12 | Outpatient (CLI) | payer MEDICARE, SELFPAY ==
[2021-03-26 14:45] LABS: Alanine Aminotransferase 75 U/L (12-78); Albumin Level 4.5 g/dl (3.5-5.0); Alkaline Phosphatase 62 U/L (38-126); Aspartate Amino Transferase 56 U/L (17-59); Bilirubin,Direct 0.2 mg/dl (0.0-0.4); Bilirubin,Indirect 0.3 mg/dL (0.0-0.9); Bilirubin,Total 0.5 mg/dl (0.2-1.3); Bilirubin,Unconjugated 0.3 mg/dL (0.0-1.1); Total Protein,Serum 7.5 g/dl (6.3-8.2)
== END ==
PROVIDERS: Visit Provider Nurse Practitioner Family
DX: R74.8 Abnormal levels of other serum enzymes (principal)
CPT/HCPCS: 36415; 80076